=== PATIENT | female | born 1945 | race Caucasian/White ===

== ENCOUNTER 2019-02-01 15:41 | Emergency (ER) | payer MEDICARE, MEDICAID, SELFPAY ==
[2019-02-01 15:57] VITALS: BP 224/81; PULSE 77; RESP 18; TEMP 36.8; O2SAT 96
[2019-02-01 17:27] VITALS: BP 197/99; PULSE 63; RESP 18; TEMP 36.8; O2SAT 98
--- NOTE | 2019-02-02 00:33 | ED.GENADUL_ITS ---
Discharge Plan Disposition Patient Disposition: HOME Condition: Good Discharge Details Chief Complaint: GenMedical Clinical Impression: Allergic reaction to bee sting Primary Care Provider: Tiara Galloway ED Provider: Veronika Guerrero Home Meds and New Rx's Prescriptions: New prednisone 10 mg tablet 10 mg PO DAILY Qty: 26 RF: 0 No Action emilie chavez 500 mg Capsule 500 mg PO RF: 0 diphenhydramine HCl 25 mg Capsule 25 mg PO PRN PRNRF: 0 Discharge Instructions Instructions: General Allergic Reaction (ED) Additional Instructions: Ice packs to the area of swelling. Use Benadryl 25 to 50 mg every 6 hours as discussed for allergic symptoms and itching. Avoid heat. Use prednisone as prescribed. Rest activities as tolerated. Return immediately for any difficulty breathing or shortness of breath or wheezing, nausea or swelling around lips or throat Return for any worsening or concerns sooner if needed. Recheck with PCP if not improving next 2 to 3 days Have a discussion with your primary care doctor regarding your blood pressure. You are aware your blood pressure is elevated. You currently choose not to take blood pressure medications and are aware of the risks involved in this decision. Discharge Data Discharge Date/Time-TO BE ENTERED AT DEPARTURE: 02/01/19 17:25 Medical Decision Making Patient presents after 4 stings from an incident and local reactions without any indication of multisystem involvement. Patient has no associated difficulty breathing shortness of breath or wheezing. Patient has no swelling to her airway or perioral spaces. Patient is no associated nausea or dizziness. No history of anaphylaxis in the past. Patient is taken Benadryl prior to arrival. We discussed the use of prednisone versus more conservative treatments with ice packs and Benadryl. Patient consents to receiving a prescription for prednisone and may use the medication at home she will likely trial conservative treatments first. Patient is no indication of anaphylaxis at this time. Patient is noted to be moderately hypertensive. This was discussed at length with the patient. She prefers to manage her hypertension with homeopathic modalities. At this point I have reported to her that the homeopathic modalities she has been attempting her not effective to manage her hypertension which keeps her at risk for cardiovascular or cerebral accidents. Patient reports her understanding but chooses to avoid medication management of her hypertension at this time. Patient is fully aware of the risks of untreated hypertension. Patient remains a smoker. Also encourage cessation. Encouraged to follow-up with PCP HPI General Date/Time Provider Initiated Documentation: 02/01/19 16:09 . HPI Narrative: Patient presents for multiple insect stings. Patient reports she was stung approximately 4 times once in the nape of the neck bilateral hands as well as the right ankle. Patient reports this occurred approximately 1 hour prior to arrival. Patient reports areas of swelling and irritation noted with mild pain. Patient denies difficulty breathing shortness of breath or wheezing. Denies any lip or throat or oral tingling or swelling. Patient has no history of anaphylaxis. Patient reports she did take 25 mg of Benadryl prior to arrival. Did discuss this patient's hypertension which was noted on her initial evaluation. Patient is very aware of hypertension and has been managing it with homeopathic modalities for the last 4 months. Patient is aware she remains hypertensive. Patient has no headache, dizziness, chest pain at this time. Related Data Home Medications Medication Instructions Recorded Confirmed diphenhydramine HCl 25 mg PO PRN PRN 02/01/19 02/01/19 hawthorn chavez 500 mg PO 02/01/19 prednisone 10 mg PO DAILY #26 tab 02/01/19 Previous Rx's Medication Instructions Recorded prednisone 10 mg PO DAILY #26 tab 02/01/19 Allergies Allergy/AdvReac Type Severity Reaction Status Date / Time No Known Allergies Allergy Unverified 02/01/19 16:06 General Stated Complaint: GenMedical CONRAD: 3 Review of Systems Review of Systems Narrative: CONSTITUTIONAL: The patient denies fevers, chills. EYES: Denies vision changes, blurry vision, or eye pain. ENT: Denies hearing changes, tinnitus, vertigo, sore throat. CARDIAC: Denies chest pain, SOB. RESPIRATORY: Denies cough, sputum. Denies difficulty breathing. GASTROINTESTINAL: Denies abdominal pain, changes in bowel, vomiting or nausea. GENITOURINARY: Denies dysuria, or frequency of urination. MUSCULOSKELETAL: Denies Joint pain, gait changes. NEUROLOGIC: Denies headaches, Denies focal weakness. Denies numbness. INTEGUMENT: Denies rashes. Four insect stings PSYCHIATRIC: Denies behavior changes. Denies anxiety or depression. ENDOCRINOLOGY: Denies fatigue. PSYCHIATRY: Denies depression, agitation or anxiety ROS Unobtainable: All systems reviewed & are unremarkable except as noted in HPI and below PFSH Social History Smoking/Tobacco Use Status: Current every day Tobacco Type: cigarettes Alcohol Intake: current Do you feel safe at home: Yes Exam Narrative Exam Narrative: CONST: Healthy appearing patient, in no acute distress. Well hydrated. Alert and alert. HENMT: Head nomocephalic, normal to inspection. Atraumatic. Hearing grossly normal. EYES: General normal appearance. Alignment normal. Eyelids normal. Conjunctiva normal. NECK: Normal visual inspection. FROM. Trachea midline. No Midline tenderness. Patient with a quarter sized area of erythema mildly raised consistent with insect sting on the nape of her neck. CHEST: Normal insepection of the chest. RESP: Normal respiratory effort. Speaking full sentences. No cough. No audible wheezing. No retractions. CARDIO: No JVD. MUSCULOSKELETAL: Normal Gait. FROM of all extremities. Bilateral hands with a single area again approximately the size of a quarter with erythema, raised with a central katherine without retained stinger. Another area on the right ankle present consistent with sting. SKIN: Normal. Dry. No rashes. NEURO: Alert and awake. Speech clear. PSYCH: Normal affect. Cooperative. Course Vital Signs Vital signs: Vital Signs Temperature 36.8 C 02/01/19 15:57 Pulse 77 02/01/19 15:57 Respiratory Rate 18 02/01/19 15:57 Blood Pressure 224/81 H 02/01/19 15:57 Pulse Oximetry 96 02/01/19 15:57 Temperature 36.8 C 02/01/19 17:27 Temperature Source Skin 02/01/19 15:57 Pulse 63 02/01/19 17:27 Respiratory Rate 18 02/01/19 17:27 Respiratory Effort 02/01/19 16:10 Respiratory Depth Normal 02/01/19 16:10 Blood Pressure 197/99 H 02/01/19 17:27 Pulse Oximetry 98 02/01/19 17:27 Oxygen Delivery Method Room Air 02/01/19 15:57 Oxygen Flow Rate 0 02/01/19 15:57 Pain Level 4 02/01/19 17:27
== END 2019-02-01 17:25 | disposition home or self-care (01) ==
PROVIDERS: Emergency Provider Physician Assistant; PCP Nurse Practitioner Family
DX: T63.441A Toxic effect of venom of bees, accidental (unintentional), initial encounter (principal); I10 Essential (primary) hypertension
CPT/HCPCS: 99283

== ENCOUNTER 2019-03-24 10:35 | Outpatient (REF) | payer MEDICARE, MEDICAID, SELFPAY ==
[2019-03-24 12:56] LABS: HCT 44.3 % (36.0-46.0); HGB 14.5 g/dL (12.0-15.5); Mean Corp. HGB Concentration 32.7 g/dL (32.0-36.0); Mean Corpuscular Hemoglobin 28.7 pg (27.0-33.0); Mean Corpuscular Volume 87.7 fL (80-95); Mean Platelet Volume 10.5 fL (8.0-11.0); Platelet Count 362 x1000/uL (130-400); RBC 5.05 m/cumm (4.00-5.20); RBC Distribution Width 14.2 % (11.7-14.6)
[2019-03-24 13:04] LABS: BUN 13 mg/dL (7-18); CREATININE 0.77 mg/dL (0.55-1.02); Calcium 9.6 mg/dL (8.5-10.1); Calculated LDL 235 mg/dL; Chloride 103 mmol/L (98-107); Cholesterol 352 mg/dL (50-200); Glucose 88 mg/dL (70-100); HDL Cholesterol 51 mg/dL (40-60); Potassium 4.5 mmol/L (3.5-5.1); Sodium 142 mmol/L (136-145); Triglyceride 332 mg/dL (30-150)
== END 2019-03-24 10:55 ==
LOC: NCHCN 10:35
PROVIDERS: PCP Nurse Practitioner Family; Visit Provider Nurse Practitioner Family
DX: E78.5 Hyperlipidemia, unspecified (principal); I10 Essential (primary) hypertension; Z13.228 Encounter for screening for other metabolic disorders; R42 Dizziness and giddiness
CPT/HCPCS: 80048; 80061; 85027

== ENCOUNTER 2019-11-27 20:41 | Emergency (ER) | payer MEDICARE, MEDICAID, SELFPAY ==
--- NOTE | 2019-11-27 21:00 | DI.RAD_ITS ---
EXAM: XR HAND RT COMPLETE fixation distal fibular fracture 40 CLINICAL HISTORY: FOOSH, pain lat carpals, 1st and 2nd carpals, and. TECHNIQUE: 2D digital imaging was performed. COMPARISON: No exams were available for comparison FINDINGS: BONES: No acute fracture is present. No bony destructive lesion is seen. JOINTS: No dislocation present. Mild degenerative changes are seen in the hand and wrist. SOFT TISSUE: Normal. IMPRESSION: No acute fracture or dislocation. DATA REPOSITORY: RADIATION DOSE DELIVERED:
[2019-11-27 21:18] VITALS: BP 192/77; PULSE 95; RESP 18; TEMP 36.9; O2SAT 97
--- NOTE | 2019-11-27 21:30 | DI.RAD_ITS ---
EXAM: XR HIP RT COMPLETE AP PELVIS CLINICAL HISTORY: fall, pain at R lateral troch. TECHNIQUE: 2D digital imaging was performed. COMPARISON: No exams were available for comparison FINDINGS: BONES: No acute fracture is present. No bony destructive lesion is seen. JOINTS: No dislocation present. There are mild degenerative changes seen in the lumbar spine. SOFT TISSUE: Normal. IMPRESSION: No acute fracture or dislocation. DATA REPOSITORY: RADIATION DOSE DELIVERED:
--- NOTE | 2019-11-27 21:53 | DI.VRAD_ITS ---
PROCEDURE INFORMATION: Exam: XR Right Hand Exam date and time: 11/27/2019 9:29 PM Age: 74 years old Clinical indication: Injury or trauma; Fall; Initial encounter; Blunt trauma (contusions or hematomas; Wrist and hand; Right; Injury date: 11/27/19; Injury details: Pain in palm, wrist foosh 1st and second carpals; Patient HX: HX of trigger finger TECHNIQUE: Imaging protocol: XR Right hand. Views: 3 or more views. COMPARISON: No relevant prior studies available. FINDINGS: Bones/joints: No acute fracture or malalignment. Mild degenerative changes of the wrist and hand. Soft tissues: Within normal limits. IMPRESSION: No acute fracture or malalignment. Degenerative changes. Dictated and Authenticated by: Veronika Shepherd MD. Ordering:ARGENIS Palmer MD
--- NOTE | 2019-11-27 21:57 | DI.VRAD_ITS ---
PROCEDURE INFORMATION: Exam: XR Right Hip with Pelvis when Performed Exam date and time: 11/27/2019 9:26 PM Age: 74 years old Clinical indication: Injury or trauma; Initial encounter; Blunt trauma (contusions or hematomas); Right; Hip; Injury date: 11/27/19; Injury details: Fall, pain at R lat troch TECHNIQUE: Imaging protocol: XR Right hip with pelvis when performed. Views: 2 or 3 views. COMPARISON: No relevant prior studies available. FINDINGS: Bones/joints: The pubic symphysis and sacroiliac joints are intact. Mild degenerative changes of the lumbosacral junction. The femoral heads are within the acetabula. Mild joint space narrowing. No acute fracture or malalignment. Soft tissues: Within normal limits. IMPRESSION: No acute fracture or malalignment. Dictated and Authenticated by: Veronika Shepherd MD. Ordering:ARGENIS Palmer MD
--- NOTE | 2019-11-27 21:57 | ED.GENADUL_ITS ---
Discharge Plan Disposition Patient Disposition: HOME Condition: Good Discharge Details Chief Complaint: Orthopedic Clinical Impression: Acute pain of right wrist, Acute pain of right hip, Fall Primary Care Provider: Sharmila Magallon ED Provider: Spencer Wilkins Home Meds and New Rx's Prescriptions: Continued emilie chavez 500 mg Capsule 500 mg PO RF: 0 diphenhydramine HCl 25 mg Capsule 25 mg PO PRN PRNRF: 0 prednisone 10 mg tablet 10 mg PO DAILY Qty: 26 RF: 0 Discharge Instructions Instructions: Wrist Injury (ED) Additional Instructions: At this time the radiologist cannot see any evidence of fracture for your wrist or your hips. I do suspect that you notably bruised them. Please use the splint that we have given you for your wrist for the next 1 to 2 weeks to help keep it stable and allow the sprain to heal. If you notice continued pain you may require repeat imaging in 2 weeks. Please use ice as frequently as possible. If you notice any worsening of your symptoms, or any new symptoms such as vomiting, diarrhea, fever, chills, shortness of breath, chest pain, numbness, weakness, or fainting , please return immediately to the emergency department for reevaluation. Please follow up with your primary care provider as soon as possible for reassessment and reevaluation. As always, it was a pleasure participating in your medical care today. Referrals: Sharmila Magallon [Primary Care Provider] - Discharge Data Discharge Date/Time-TO BE ENTERED AT DEPARTURE: 11/27/19 22:10 Medical Decision Making 74-year-old female with a past medical history of multiple allergies medication intolerance presents today for evaluation of right hand pain, and right hip pain after fall. Patient has a history of chronic M?ni?re's disease, states that she is slightly dizzy like her normal dizziness and fortunately this time while she was in the parking lot she had a mechanical trip with the dizziness and fell. She did not strike her head or lose consciousness. Fall occurred 5 hours prior to arrival. She has mild pain in the right hip, and small pain in her right wrist and hand around the thumb and lateral wrist. She has been able to ambulate well. Her dizziness she states is at her baseline and completely unchanged. She otherwise feels well at this time. She states that she has no atypical symptoms in regards to her dizziness, and states that at this time she is back to her baseline. Physical exam demonstrates mild tenderness over the medial carpals, in the first and second metacarpals. No decrease in sensation or change in two-point discrimination however states she does have some mild subjective tingling the tips of her first second and third finger. Hip demonstrates mild tenderness on the right lateral greater trochanter, no deformity. She ambulates well. X-ray of the hip and right hand/wrist demonstrate no evidence of acute fracture. No other acute abnormality. Patient does not want any pain medications. She was given a wrist splint. She ambulated well. No evidence of acute fracture feel that she can be safely discharged home with close follow-up. We did recommend the importance of repeat radiographs if she has no resolution of her symptoms over the next 2 weeks. I have extensively reviewed the treatment plan and discharge instructions with the patient. I have addressed all patient concerns at this time. The patient was made aware of what symptoms to monitor for that would warrant a return to the emergency department. Discussed the plan with the patient, they demonstrate verbal understanding and agreement with our assessment and plan at this time. FINDINGS: Bones/joints: No acute fracture or malalignment. Mild degenerative changes of the wrist and hand. Soft tissues: Within normal limits. IMPRESSION: No acute fracture or malalignment. Degenerative changes. Thank you for allowing us to participate in the care of your patient. Dictated and Authenticated by: Veronika Shepherd MD 11/27/2019 9:53 PM Eastern Time ([place] & [place]) FINDINGS: Bones/joints: The pubic symphysis and sacroiliac joints are intact. Mild degenerative changes of the lumbosacral junction. The femoral heads are within the acetabula. Mild joint space narrowing. No acute fracture or malalignment. Soft tissues: Within normal limits. IMPRESSION: No acute fracture or malalignment. Thank you for allowing us to participate in the care of your patient. Dictated and Authenticated by: Veronika Shepherd MD 11/27/2019 9:56 PM Eastern Time ([place] & [place]) HPI General Date/Time Provider Initiated Documentation: 11/27/19 20:59 . HPI Narrative: 74-year-old female with a past medical history of multiple allergies medication intolerance presents today for evaluation of right hand pain, and right hip pain after fall. Patient has a history of chronic M?ni?re's disease, states that she is slightly dizzy like her normal dizziness and fortunately this time while she was in the parking lot she had a mechanical trip with the dizziness and fell. She did not strike her head or lose consciousness. Fall occurred 5 hours prior to arrival. She has mild pain in the right hip, and small pain in her right wrist and hand around the thumb and lateral wrist. She has been able to ambulate well. Her dizziness she states is at her baseline and completely unchanged. She otherwise feels well at this time. She states that she has no atypical symptoms in regards to her dizziness, and states that at this time she is back to her baseline. Related Data Home Medications Medication Instructions Recorded Confirmed diphenhydramine HCl 25 mg PO PRN PRN 02/01/19 02/01/19 hawthorn chavez 500 mg PO 02/01/19 prednisone 10 mg PO DAILY #26 tab 02/01/19 Previous Rx's Medication Instructions Recorded prednisone 10 mg PO DAILY #26 tab 02/01/19 Allergies Allergy/AdvReac Type Severity Reaction Status Date / Time No Known Allergies Allergy Unverified 02/01/19 16:06 General Stated Complaint: Orthopedic CONRAD: 4 Review of Systems All systems reviewed & are unremarkable except as noted in HPI and below PFSH Social History Smoking/Tobacco Use Status: Current every day Tobacco Type: cigarettes Alcohol Intake: current Do you feel safe at home: Yes Exam Narrative Exam Narrative: 1.Const: Well-nourished, Well-developed, appearing stated age 2.Eyes: PERRL, no conjunctival injection, and symmetrical lids. 3.ENT: Atraumatic external nose and ears. Moist MM. Neck: Symmetric, trachea midline, No thyromegaly. 4.CVS: +S1/S2, No murmurs or gallops. Peripheral pulses 2+ and equal in all extremities. Brisk capillary refill in all extremities. 5.RESP: Unlabored respiratory effort. Clear to auscultation bilaterally. No wheezes rales or rhonchi 6.GI: Soft, Nontender/Nondistended, No hepatosplenomegaly. No guarding or rebound. 7.MSK: Normocephalic, Extremities w/o deformity. No cyanosis or clubbing, Normal movement of all extremities. Right wrist: Patient demonstrates mild pain at the lateral carpals and first and second metacarpal. Symmetrically palpable radial and ulnar pulses. Capillary refill less than 2 seconds to all digits. Intact sensation to light touch of the radial, median and ulnar nerves demonstrated by testing in the dorsal web space of the thumb, the distal palmar aspect of the index finger, and the lateral surface of the fifth finger. 2 point discrimination intact to 5mm (up to 6mm can be normal in digits 3-5) of discrimination in the affected digit. However the patient does complain of mild subjective tingling on exam. Intact motor function of the radial, median and ulnar nerves demonstrated by strength of extension of the isolated distal joint of the index finger, hand cloth sander, and spreading of the 2nd through 5th digits. Intact recurrent median nerve as demonstrated by ability to move thumb fully through opposition, abduction and flexion. However there is some pain with this movement. Hips: Patient demonstrates mild pain on palpation of the greater trochanter, however she ambulates well. No significant pain with logroll. No significant pain with internal or external rotation. 8.Skin: Warm, Dry. No rashes or lesions. 9.Neuro: experimental worker II-XII grossly intact. Sensation grossly intact, no focal neurologic deficits. 10.Psych: (AAO) x3. Appropriate mood and affect Course Vital Signs Vital signs: Vital Signs Temperature 36.9 C 11/27/19 21:18 Pulse 95 H 11/27/19 21:18 Respiratory Rate 18 11/27/19 21:18 Blood Pressure 192/77 H 11/27/19 21:18 Pulse Oximetry 97 11/27/19 21:18 Temperature 36.9 C 11/27/19 21:18 Temperature Source Oral 11/27/19 21:18 Pulse 95 H 11/27/19 21:18 Respiratory Rate 18 11/27/19 21:18 Blood Pressure 192/77 H 11/27/19 21:18 Pulse Oximetry 97 11/27/19 21:18 Pain Level 8 11/27/19 21:18
[2019-11-27 22:14] VITALS: BP 192/77; PULSE 95; RESP 18; TEMP 36.9; O2SAT 97
== END 2019-11-27 22:10 | disposition home or self-care (01) ==
LOC: ER 22:26
PROVIDERS: Emergency Provider Student in an Organized Health Care Education/Training Program; PCP Nurse Practitioner Family
DX: S63.501A Unspecified sprain of right wrist, initial encounter (principal); M25.551 Pain in right hip; W19.XXXA Unspecified fall, initial encounter; R42 Dizziness and giddiness
CPT/HCPCS: 99284; 73130; 73502; L3908